=== PATIENT | female | born 1975 | race Caucasian/White ===

== ENCOUNTER 2019-08-25 05:38 | Day surgery (SDC) | payer BC, OTHER ==
[~2019-08-25 05:38] MED LIST: Buffered Lidocaine 1% SYRIN* 1 ML/SYRINGE INTRADERM ONE
[2019-08-25] MEDS ORDERED: Lactated Ringers 1000 ML Bag* 1,000 ML IV SCH (06:00)
[2019-08-25] MEDS ORDERED: ceFAZolin 2 GM in NS PREMIX(*) 2 GM/100 ML BAG IVPB ONE (06:09)
[2019-08-25] MEDS ORDERED: fentaNYL* 50 MCG/ML 2 ML VIAL (100 MCG VIAL) ONE ×3 (07:22→09:06)
[2019-08-25] MEDS ORDERED: Midazolam* 1 MG/ML 5 ML VIAL (5 MG) ONE (07:22)
[2019-08-25] MEDS ORDERED: Naloxone* 0.4 MG/ML 1 ML VIAL IV PRN (07:25)
[2019-08-25] MEDS ORDERED: Lidocaine 2% PF* 10 ML AMP ONE ×2 (07:34→07:59)
[2019-08-25] MEDS ORDERED: Midazolam* 1 MG/ML 2 ML VIAL (2 MG) ONE (07:46)
[2019-08-25] MEDS ORDERED: Propofol* 10 MG/ML 20 ML BTL ONE (08:28)
[2019-08-25] MEDS ORDERED: Lidocaine 2% PF * 5 ML VIAL ONE (08:28)
[2019-08-25] MEDS ORDERED: Bupivacaine 0.5%* 50 ML MDV VIAL ONE (08:38)
[2019-08-25] MEDS ORDERED: Ketorolac INJ* 30 MG/ML 1 ML VIAL ONE (08:54)
[2019-08-25 10:12] VITALS: BP 141/86
--- NOTE | 2019-08-25 21:57 | OP ---
DATE OF OPERATION: 08/25/19 - [facility] DATE OF : 77 SURGEON: Oral Caldera MD. DIGITAL COMPUTER SYSTEMS ANALYST: Catina Gonzalez PA-C. PRE-OP DIAGNOSES: 1. Right hallux valgus. 2. Soft tissue mass, left foot. POST-OP DIAGNOSES: 1. Right hallux valgus. 2. Soft tissue mass, left foot. OPERATIVE PROCEDURES: 1. Right chevron correction of the right hallux valgus. 2. Excision of soft tissue mass of left dorsal midfoot. DESCRIPTION OF PROCEDURE: The patient had bilateral standard prep and drape. The left foot mass was a centimeter in size and was located over the dorsal lateral area of the midfoot. We incised down through the subcutaneous tissue to expose this rounded cyst which had clear jelly fluid inside. It was carved away from the soft tissues and sent to pathology. A 3-0 Monocryl was used for the subcu and a nylon for the skin with a compression dressing. The first dorsal webspace of the right hallux valgus was opened to allow visualization of the adductor tendon, which was removed with the 15-blade away from the lateral border of the sesamoid. The transverse ligament was incised at the same time. We made a straight medial incision over the medial eminence with an L-shaped capsulotomy. We reflected the capsule plantar to allow flattening of the medial eminence with the microsagittal saw. We then divided the metatarsal neck with the proximal limb proximal to the capsule insertion, dorsal at about 60 degrees. We then translated the metatarsal head laterally about 5 to 6 mm, pinning this from the plantar to dorsal side with a 0.062 C wire. The redundant medial eminence was removed with a microsagittal saw. The capsule was repaired with 0 Vicryl sutures. Subcutaneous closure of dorsal and medial wounds with 3-0 Monocryl, 4-0 nylon and a compression dressing applied. [id number]/[facility] #: [id number] [facility]
== END 2019-08-25 10:15 | disposition home or self-care (01) ==
LOC: OR 05:38
PROVIDERS: ATTEND Orthopaedic Surgery
DX: M20.11 Hallux valgus (acquired), right foot (principal); M67.472 Ganglion, left ankle and foot; Z85.3 Personal history of malignant neoplasm of breast
CPT/HCPCS: 81025; 88304; C1776; J0690; J1885; J2001; J2250; J2704; J3010; J3490